=== PATIENT | female | born 1990 | race Caucasian/White ===

== ENCOUNTER 2018-06-24 05:58 | Day surgery (SDC) | payer OTHER ==
[~2018-06-24] VITALS: Ht 154.9 cm; Wt 67.6 kg
[~2018-06-24 05:58] MED LIST: DENIES
[2018-06-24 06:57] VITALS: Ht 154.9 cm; Wt 67.6 kg
[2018-06-24] MEDS ORDERED: OMEPRAZOLE (07:02)
[2018-06-24] MEDS ORDERED: MIRALAX (07:02)
[2018-06-24 07:17] VITALS: BP 116/78; PULSE 72; RESP 18
[2018-06-24] MEDS ORDERED: FENTAnyl 50 MCG/ML VIAL ONE (08:03)
[2018-06-24] MEDS ORDERED: MIDAZOLAM 1 MG/ML 2 ML INJ ONE ×2 (08:03)
[2018-06-24 08:25] VITALS: BP 103/59; RESP 15
--- NOTE | 2018-06-24 12:06 | CONS ---
DATE OF ADMISSION: 06/24/2018 DATE OF CONSULTATION: PATIENT NAME: JOELLE SINGLETON Dear Dr. Ledesma: Thank you very much for this kind referral. Ms. Joelle Singleton is a 28-year-old female patient who has been referred to me for further evaluation of upper abdominal pain, not responding to therapy with omeprazole. No past history of peptic ulcer di sease. Not on nonsteroidal anti-inflammatory agents. No history of gallstones or liver disease. Ap petite is good and no weight loss. The patient also gives history of constipation and she has been t aking MiraLax. No rectal bleeding. No past history of inflammatory bowel disease. Not a hypertensi ve or diabetic. No heart disease, lung problem, or kidney disease. SOCIAL HISTORY: Nonsmoker. No alcohol abuse. FAMILY HISTORY: No family history of gastrointestinal tract neoplasm. ALLERGIES: NO DRUG ALLERGIES. MEDICATION: MiraLax. PHYSICAL EXAMINATION: VITAL SIGNS: She is 5 feet 1 inch tall and weighs 145 pounds. HEART: Normal heart sounds. LUNGS: Clear. ABDOMEN: Soft, no masses. Slight epigastric tenderness. Normal bowel sounds. NEUROLOGIC: Normal neurological exam. IMPRESSION: 1. Upper abdominal pain, not responding to therapy with omeprazole, and the patient has discontinued the medications. 2. Constipation. She is on MiraLax. PLAN: Endoscopic examination for further evaluation. The procedure and possible complications are well explained to the patient, and she understands and c onsents to the procedure. Thank you once again. With warmest personal regards, Dictated By: SENTHIL CARRILLO/YARA Conf#: [id number] DID#: [id number] CC: Dr. Ledesma;*EndCC*
== END 2018-06-24 10:18 | disposition home or self-care (01) ==
LOC: GIL 05:58
PROVIDERS: ATTEND Internal Medicine Gastroenterology
DX: K29.50 Unspecified chronic gastritis without bleeding (principal)
CPT/HCPCS: 43239; 84703; 88305; 88312; J2250; J3010; Z7610